=== PATIENT | male | born 1995 | race Caucasian/White ===

== ENCOUNTER 2019-01-31 07:49 | Day surgery (SDC) | payer OTHER ==
[~2019-01-31] VITALS: Ht 185.4 cm; Wt 77.6 kg
[2019-01-31] VITALS (16 sets, daily range): BP systolic 91–131; BP diastolic 42–91
[~2019-01-31 07:49] MED LIST: ALBU8.5H2 IH; CONCERTA PO; FLUT50DI2 INH; MNTL10T PO
--- OUTSIDE RECORDS SUMMARY | 2019-01-31 07:53 | XMS REPORT ---
Author Author KYE ROMAN Organization [facility] Address [address] [place] [address] Care Team Providers Care Pie Filling Mixer Name Role Phone KYE ROMAN Unavailable PROBLEMS Type Condition ICD9-CM Code [id number] Code Onset Dates Condition Status SNOMED Code Problem Attention deficit hyperactivity disorder (ADHD), predominantly inattentive type F90.0 Active 11498724 Problem Other general medical examination for administrative purposes V70.3 Active 30385434 ALLERGIES No Information ENCOUNTERS Encounter Location Date Diagnosis [place] [id number] [place] [address] Nov, Attention deficit hyperactivity disorder (ADHD), predominantly inattentive type F90.0 [facility] [id number] [place] [address] Oct, Attention deficit hyperactivity disorder (ADHD), predominantly inattentive type F90.0 [facility] [id number] [place] [address] Sep, Attention deficit hyperactivity disorder (ADHD), predominantly inattentive type F90.0 [facility] [id number] [place] [address] Aug, Attention deficit hyperactivity disorder (ADHD), predominantly inattentive type F90.0 [facility] [id number] [place] [address] Jul, Attention deficit hyperactivity disorder (ADHD), predominantly inattentive type F90.0 [facility] [id number] [place] [address] Jun, Attention deficit hyperactivity disorder (ADHD), predominantly inattentive type F90.0 [facility] [id number] [place] [address] May, Encounter for immunization Z23 [facility] [address], [place] [address] Jan, Dental examination Z01.20 [facility] [id number] [address] December, [facility] [id number] [address] December, Mood disorder F39 and Primary insomnia F51.01 [facility] [address], [place] [address] Jul, Routine general medical examination at health care facility Z00.00 [facility] [id number] [address] 14 Nov, 2014 [facility] [id number] [address] Nov, [facility] [id number], [place] [address] Apr, [facility] [address], [place] [address] Apr, [facility] [id number] [address] Nov, [facility] [address], [place] [address] Nov, [facility] [id number], [place] [address] Aug, [facility] [id number], [place] [address] Sep, [facility] [id number], [place] [address] Aug, [facility] [id number], [place] [address] Aug, [facility] [id number] [address] Jul, [facility] [id number], [place] [address] Jul, [facility] [id number], [place] [address] May, [facility] [id number], [place] [address] Jul, [facility] [id number], [place] [address] Jun, [facility] [id number] [place] [address] Jul, [facility] [id number], [place] [address] Jun, [facility] [id number], [place] [address] Mar, [facility] [id number] [address] Feb, IMMUNIZATIONS No Known Immunizations SOCIAL HISTORY Never Assessed REASON FOR VISIT Controlled Med Refill PLAN OF CARE VITAL SIGNS MEDICATIONS Medication Instructions Dosage Frequency Start Date End Date Duration Status Adderall 20 mg Orally Once a day 1 tablet in the morning 24h Nov, 28 days Active RESULTS No Results PROCEDURES No Known procedures INSTRUCTIONS MEDICATIONS ADMINISTERED No Known Medications MEDICAL (GENERAL) HISTORY Type Description Date Surgical History inguinal hernia repair
--- OUTSIDE RECORDS SUMMARY | 2019-01-31 07:53 | XMS REPORT ---
Author Author Migration, Doctor Organization [facility] Address Unknown Phone Unavailable Care Team Providers Care Learning Support Aide Name Role Phone Migration, Doctor Unavailable Unavailable PROBLEMS Type Condition ICD9-CM Code [id number] Code Onset Dates Condition Status SNOMED Code Problem Other general medical examination for administrative purposes V70.3 Active 22699922 Problem Attention deficit hyperactivity disorder (ADHD), predominantly inattentive type F90.0 Active 60832438 ALLERGIES No Information ENCOUNTERS Encounter Location Date Diagnosis [place] [id number] [place] [address] Nov, Attention deficit hyperactivity disorder (ADHD), predominantly inattentive type F90.0 [place] [id number] [place] [address] Oct, Attention deficit hyperactivity disorder (ADHD), predominantly inattentive type F90.0 [place] [id number] [place] [address] Sep, Attention deficit hyperactivity disorder (ADHD), predominantly inattentive type F90.0 [place] [id number] [place] [address] Aug, Attention deficit hyperactivity disorder (ADHD), predominantly inattentive type F90.0 [place] [id number] [place] [address] Jul, Attention deficit hyperactivity disorder (ADHD), predominantly inattentive type F90.0 [place] [id number] [place] [address] Jun, Attention deficit hyperactivity disorder (ADHD), predominantly inattentive type F90.0 [facility] [id number] [place] [address] May, Encounter for immunization Z23 [place] [id number] [address] Jan, Dental examination Z01.20 [facility] [address] [address] December, [facility] [address] [address] December, Mood disorder F39 and Primary insomnia F51.01 [facility] [address] [address] 02 Jul, 2015 [facility] Z[facility].00 [facility] [address] [address] 14 Nov, 2014 [facility] [id number] [address] Nov, [facility] [address] [address] 27 Apr, 2013 [facility] [address] [address] 06 Apr, 2013 [facility] [address] [address] Nov, [facility] [address] [address] Nov, [facility] [address] [address] Aug, [facility] [address] [address] Sep, [facility] [address] [address] Aug, [facility] [address] [address] Aug, [facility] [address] [address] Jul, [facility] [address] [address] Jul, [facility] [address] [address] May, [facility] [address] [address] Jul, [facility] [id number] [place] [address] Jun, [facility] [id number] [place] [address] Jul, [facility] [id number] [place] [address] Jun, [facility] [address] [address] Mar, [facility] [address] [address] Feb, IMMUNIZATIONS No Known Immunizations SOCIAL HISTORY Never Assessed REASON FOR VISIT [place] [place] PLAN OF CARE VITAL SIGNS MEDICATIONS Medication Instructions Dosage Frequency Start Date End Date Duration Status Concerta 27 mg 1 tablet by Oral route 1 time per dayin the morning, for ADHD Sep, Active RESULTS No Results PROCEDURES No Known procedures INSTRUCTIONS MEDICATIONS ADMINISTERED No Known Medications MEDICAL (GENERAL) HISTORY Type Description Date Surgical History inguinal hernia repair
--- OUTSIDE RECORDS SUMMARY | 2019-01-31 07:53 | XMS REPORT ---
Author Author Migration, Doctor Organization [facility] Address Unknown Phone Unavailable Care Team Providers Care Offal Worker Name Role Phone Migration, Doctor Unavailable Unavailable PROBLEMS Type Condition ICD9-CM Code [id number] Code Onset Dates Condition Status SNOMED Code Problem Other general medical examination for administrative purposes V70.3 Active 04049294 Problem Attention deficit hyperactivity disorder (ADHD), predominantly inattentive type F90.0 Active 74986409 ALLERGIES No Information ENCOUNTERS Encounter Location Date Diagnosis [place] [id number] [place] [address] Nov, Attention deficit hyperactivity disorder (ADHD), predominantly inattentive type F90.0 [place] [id number] [place] [address] Oct, Attention deficit hyperactivity disorder (ADHD), predominantly inattentive type F90.0 [place] [id number] [place] [address] Sep, Attention deficit hyperactivity disorder (ADHD), predominantly inattentive type F90.0 [place] [id number] [place] [address] Aug, Attention deficit hyperactivity disorder (ADHD), predominantly inattentive type F90.0 [place] [id number] [place] [address] Jul, Attention deficit hyperactivity disorder (ADHD), predominantly inattentive type F90.0 [place] [id number] [place] [address] Jun, Attention deficit hyperactivity disorder (ADHD), predominantly inattentive type F90.0 [facility] [id number] [place] [address] May, Encounter for immunization Z23 [place] [id number] [address] Jan, Dental examination Z01.20 [facility] [address] [address] December, [facility] [address] [address] December, Mood disorder F39 and Primary insomnia F51.01 [facility] [address] [address] 02 Jul, 2015 Routine general medical examination at [facility] facility Z00.00 [facility] [address] [address] [address], [address] [facility] [id number] [address] Nov, [facility] [address] [address] [address], [address] [facility] [address] [address] 06 Apr, 2013 [facility] [address] [address] Nov, [facility] [address] [address] Nov, [facility] [address] [address] Aug, [facility] [address] [address] Sep, [facility] [address] [address] Aug, [facility] [address] [address] Aug, [facility] [address] [address] Jul, [facility] [address] [address] Jul, [facility] [address] [address] May, [facility] [address] [address] Jul, [facility] [id number] [place] [address] Jun, [facility] [id number] [place] [address] Jul, [facility] [id number] [place] [address] Jun, [facility] [address] [address] Mar, [facility] [address] [address] Feb, IMMUNIZATIONS No Known Immunizations SOCIAL HISTORY Never Assessed REASON FOR VISIT EMR-[facility] [place] PLAN OF CARE VITAL SIGNS MEDICATIONS Unknown Medications RESULTS No Results PROCEDURES No Known procedures INSTRUCTIONS MEDICATIONS ADMINISTERED No Known Medications MEDICAL (GENERAL) HISTORY Type Description Date Surgical History inguinal hernia repair
--- OUTSIDE RECORDS SUMMARY | 2019-01-31 07:53 | XMS REPORT ---
Author Author Migration, Doctor Organization [facility] Address Unknown Phone Unavailable Care Team Providers Care Behavioral Health Assistant Name Role Phone Migration, Doctor Unavailable Unavailable PROBLEMS Type Condition ICD9-CM Code ZCS85-MI Code Onset Dates Condition Status SNOMED Code Problem Other general medical examination for administrative purposes V70.3 Active 46563421 Problem Attention deficit hyperactivity disorder (ADHD), predominantly inattentive type F90.0 Active 96449453 ALLERGIES No Information ENCOUNTERS Encounter Location Date Diagnosis [place] [id number] [place] [address] Nov, Attention deficit hyperactivity disorder (ADHD), predominantly inattentive type F90.0 [place] [id number] [place] [address] Oct, Attention deficit hyperactivity disorder (ADHD), predominantly inattentive type F90.0 [place] [id number] [place] [address] Sep, Attention deficit hyperactivity disorder (ADHD), predominantly inattentive type F90.0 [place] [id number] [place] [address] Aug, Attention deficit hyperactivity disorder (ADHD), predominantly inattentive type F90.0 [place] [id number] [place] [address] Jul, Attention deficit hyperactivity disorder (ADHD), predominantly inattentive type F90.0 [place] [id number] [place] [address] Jun, Attention deficit hyperactivity disorder (ADHD), predominantly inattentive type F90.0 [facility] [id number] [place] [address] May, Encounter for immunization Z23 [place] [id number], [place] [address] Jan, Dental examination Z01.20 [facility] [address], [place] [address] December, [facility] [address], [place] [address] December, Mood disorder F39 and Primary insomnia F51.01 [facility] [address], [place] [address] 02 Jul, 2015 Routine general medical examination at [facility] facility Z00.00 [facility] [address], [place] [address] 14 Nov, 2014 [facility] [id number], [place] [address] Nov, [facility] [address], [place] [address] 27 Apr, 2013 [facility] [address], [place] [address] 06 Apr, 2013 [facility] [address], [place] [address] Nov, [facility] [address], [place] [address] Nov, [facility] [address], [place] [address] Aug, [facility] [address], [place] [address] Sep, [facility] [address], [place] [address] Aug, [facility] [address], [place] [address] Aug, [facility] [address], [place] [address] Jul, [facility] [address], [place] [address] Jul, [facility] [address], [place] [address] May, [facility] [address], [place] [address] Jul, [facility] [id number] [place] [address] Jun, [facility] [id number] [place] [address] Jul, [facility] [address] [place] [address] Jun, [facility] [address], [place] [address] Mar, [facility] [address], [place] [address] Feb, IMMUNIZATIONS No Known Immunizations SOCIAL HISTORY Never Assessed REASON FOR VISIT [place] [place]AN OF CARE VITAL SIGNS MEDICATIONS Unknown Medications RESULTS No Results PROCEDURES No Known procedures INSTRUCTIONS MEDICATIONS ADMINISTERED No Known Medications MEDICAL (GENERAL) HISTORY Type Description Date Surgical History inguinal hernia repair
--- OUTSIDE RECORDS SUMMARY | 2019-01-31 07:53 | XMS REPORT ---
Author Author Migration, Doctor Organization [facility] Address Unknown Phone Unavailable Care Team Providers Care Java [id number] Technical Lead Name Role Phone Migration, Doctor Unavailable Unavailable PROBLEMS Type Condition ICD9-CM Code HIX03-CE Code Onset Dates Condition Status SNOMED Code Problem Other general medical examination for administrative purposes V70.3 Active 55028723 Problem Attention deficit hyperactivity disorder (ADHD), predominantly inattentive type F90.0 Active 51269135 ALLERGIES No Information ENCOUNTERS Encounter Location Date Diagnosis [place] [id number] [place] [address] Nov, Attention deficit hyperactivity disorder (ADHD), predominantly inattentive type F90.0 [place] [id number] [place] [address] Oct, Attention deficit hyperactivity disorder (ADHD), predominantly inattentive type F90.0 [place] [id number] [place] [address] Sep, Attention deficit hyperactivity disorder (ADHD), predominantly inattentive type F90.0 [place] [id number] [place] [address] Aug, Attention deficit hyperactivity disorder (ADHD), predominantly inattentive type F90.0 [place] [id number] [place] [address] Jul, Attention deficit hyperactivity disorder (ADHD), predominantly inattentive type F90.0 [place] [id number] [place] [address] Jun, Attention deficit hyperactivity disorder (ADHD), predominantly inattentive type F90.0 [facility] [id number] [place] [address] May, Encounter for immunization Z23 [place] [id number], [place] [address] Jan, Dental examination Z01.20 [facility] [address], [place] [address] December, [facility] [address], [place] [address] December, Mood disorder F39 and Primary insomnia F51.01 [facility] [address], [place] [address] 02 Jul, 2015 Routine general medical examination at [facility] facility Z00.00 [facility] [address], [place] [address] 14 Nov, 2014 [facility] [address], [place] [address] Nov, [facility] [address], [place] [address] 27 Apr, 2013 [facility] [address], [place] [address] 06 Apr, 2013 [facility] [address], [place] [address] Nov, [facility] [address], [place] [address] Nov, [facility] [address], [place] [address] Aug, [facility] [address], [place] [address] Sep, [facility] [address], [place] [address] Aug, [facility] [address], [place] [address] Aug, [facility] [address], [place] [address] Jul, [facility] [address], [place] [address] Jul, [facility] [address], [place] [address] May, [facility] [address], [place] [address] Jul, [facility] [id number] [place] [address] Jun, [facility] [id number] [place] [address] Jul, [facility] [address] [place] [address] Jun, [facility] [address], [place] [address] Mar, [facility] [address], [place] [address] Feb, IMMUNIZATIONS No Known Immunizations SOCIAL HISTORY Never Assessed REASON FOR VISIT EMR-[facility] [place] PLAN OF CARE VITAL SIGNS MEDICATIONS Unknown Medications RESULTS No Results PROCEDURES No Known procedures INSTRUCTIONS MEDICATIONS ADMINISTERED No Known Medications MEDICAL (GENERAL) HISTORY Type Description Date Surgical History inguinal hernia repair
--- OUTSIDE RECORDS SUMMARY | 2019-01-31 07:53 | XMS REPORT ---
Author Author Migration, Doctor Organization [facility] Address Unknown Phone Unavailable Care Team Providers Care Beader Tender Name Role Phone Migration, Doctor Unavailable Unavailable PROBLEMS Type Condition ICD9-CM Code [id number] Code Onset Dates Condition Status SNOMED Code Problem Other general medical examination for administrative purposes V70.3 Active 28178271 Problem Attention deficit hyperactivity disorder (ADHD), predominantly inattentive type F90.0 Active 75616830 ALLERGIES No Information ENCOUNTERS Encounter Location Date Diagnosis [place] [id number] [place] [address] Nov, Attention deficit hyperactivity disorder (ADHD), predominantly inattentive type F90.0 [place] [id number] [place] [address] Oct, Attention deficit hyperactivity disorder (ADHD), predominantly inattentive type F90.0 [place] [id number] [place] [address] Sep, Attention deficit hyperactivity disorder (ADHD), predominantly inattentive type F90.0 [place] [id number] [place] [address] Aug, Attention deficit hyperactivity disorder (ADHD), predominantly inattentive type F90.0 [place] [id number] [place] [address] Jul, Attention deficit hyperactivity disorder (ADHD), predominantly inattentive type F90.0 [place] [id number] [place] [address] Jun, Attention deficit hyperactivity disorder (ADHD), predominantly inattentive type F90.0 [facility] [id number] [place] [address] May, Encounter for immunization Z23 [place] [id number] [address] Jan, Dental examination Z01.20 [facility] [id number] [address] December, [facility] [id number] [address] December, Mood disorder F39 and Primary insomnia F51.01 [facility] [id number] [address] 02 Jul, 2015 Routine general medical examination at [facility] Z00.00 [facility] [id number] [address] 14 Nov, 2014 [facility] [id number] [address] Nov, [facility] [id number] [address] 27 Apr, 2013 [facility] [id number] [address] 06 Apr, 2013 [facility] [id number] [address] Nov, [facility] [id number] [address] Nov, [facility] [id number] [address] Aug, [facility] [id number] [address] Sep, [facility] [id number] [address] Aug, [facility] [id number] [address] Aug, [facility] [id number] [address] Jul, [facility] [id number] [address] Jul, [facility] [id number] [address] May, [facility] [id number] [address] Jul, [facility] [id number] [place] [address] Jun, [facility] [id number] [place] [address] Jul, [facility] [id number] [place] [address] Jun, [facility] [id number] [address] Mar, [facility] [id number] [address] Feb, IMMUNIZATIONS No Known Immunizations SOCIAL HISTORY Never Assessed REASON FOR VISIT E[place] [place]AN OF CARE VITAL SIGNS MEDICATIONS Unknown Medications RESULTS No Results PROCEDURES No Known procedures INSTRUCTIONS MEDICATIONS ADMINISTERED No Known Medications MEDICAL (GENERAL) HISTORY Type Description Date Surgical History inguinal hernia repair
--- OUTSIDE RECORDS SUMMARY | 2019-01-31 07:54 | XMS REPORT | Continuity of Care Document ---
Author Organization Unknown Address Unknown Allergies There is no data. Medications There is no data. Problems Date Dx Coded Attending Type Code Diagnosis Diagnosed By 03/16/2008 AKRMA UMANA APRN 314.01 ATTENTION-DEFICIT HYPERACTIVITY DISORDER 03/16/2008 ENEDINA MIRANDA DO 314.01 ATTENTION-DEFICIT HYPERACTIVITY DISORDER 04/28/2008 KARMA UMANA APRN V58.69 MEDICATION HIGH RISK 04/28/2008 ENEDINA MIRANDA DO V58.69 MEDICATION HIGH RISK 03/08/2010 KARMA UMANA APRN V06.5 DT, TETANUS-DIPHTHERIA [Td] ,TDAP 03/08/2010 ENEDINA MIRANDA DO V06.5 DT, TETANUS-DIPHTHERIA [Td] ,TDAP 03/06/2011 DONG RASCON KARMA JAMIN 303.00 ACUTE ALCOHOLIC INTOXICATION IN ALCOHOLISM UNSPECIFIED DRINKING BEHAVIOR 03/06/2011 ENEDINA MIRANDA DO 303.00 ACUTE ALCOHOLIC INTOXICATION IN ALCOHOLISM UNSPECIFIED DRINKING BEHAVIOR 07/20/2011 KARMA UMANA APRN V04.81 FLU DX (P-FREE AGE 3 AND ABOVE) 07/20/2011 ENEDINA MIRANDA DO V04.81 FLU DX (P-FREE AGE 3 AND ABOVE) 05/02/2013 ENEDINA MIRANDA DO V70.3 OTHER GENERAL MEDICAL EXAMINATION FOR ADMINISTRATIVE PURPOSES Procedures There is no data. Results There is no data. Encounters ACCT No. Visit Date/Time Discharge Status Pt. Type Provider Facility Loc./Unit Complaint [id number] 05/02/2013 08:51:00 05/02/2013 23:59:59 [facility] Outpatient ENEDINA MIRANDA DO [id number] 09/05/2011 10:35:00 09/05/2011 23:59:59 [facility] Outpatient KARMA UMANA APRN [id number] 08/20/2012 20:32:56 [facility] [id number] 07/02/2017 08:00:00 07/02/2017 23:59:59 [facility]
--- OUTSIDE RECORDS SUMMARY | 2019-01-31 07:54 | XMS REPORT ---
Author Author KYE ROMAN Organization [facility] [place] Address [address] [place] [address] Care Team Providers Care Racking Machine Operator Name Role Phone KYE ROMAN Unavailable PROBLEMS Type Condition ICD9-CM Code [id number] Code Onset Dates Condition Status SNOMED Code Problem Attention deficit hyperactivity disorder (ADHD), predominantly inattentive type F90.0 Active 70395986 Problem Other general medical examination for administrative purposes V70.3 Active 30782286 ALLERGIES No Information ENCOUNTERS Encounter Location Date Diagnosis [place] [id number] [place] [address] Nov, Attention deficit hyperactivity disorder (ADHD), predominantly inattentive type F90.0 [facility] [place] [id number] [place] [address] Oct, Attention deficit hyperactivity disorder (ADHD), predominantly inattentive type F90.0 [facility] [place] [id number] [place] [address] Sep, Attention deficit hyperactivity disorder (ADHD), predominantly inattentive type F90.0 [facility] [place] [id number] [place] [address] Aug, Attention deficit hyperactivity disorder (ADHD), predominantly inattentive type F90.0 [facility] [place] [id number] [place] [address] Jul, Attention deficit hyperactivity disorder (ADHD), predominantly inattentive type F90.0 [facility] [place] [id number] [place] [address] Jun, Attention deficit hyperactivity disorder (ADHD), predominantly inattentive type F90.0 [facility] [place] [id number] [place] [address] May, Encounter for immunization Z23 [facility] [place] [address] [address] Jan, Dental examination Z01.20 [facility] [place] [id number] [address] December, [facility] [place] [id number] [address] December, Mood disorder F39 and Primary insomnia F51.01 [facility] [place] [address] [address] Jul, Routine general medical examination at health care facility Z00.00 [facility] [place] [id number] [address] 14 Nov, 2014 [facility] [place] [id number] [address] Nov, [facility] [place] [id number] [address] Apr, [facility] [place] [id number] [address] Apr, [facility] [place] [id number] [address] Nov, [facility] [place] [id number] [address] Nov, [facility] [place] [id number] [address] Aug, [facility] [place] [id number] [address] Sep, [facility] [place] [id number] [address] Aug, [facility] [place] [id number] [address] Aug, [facility] [place] [id number] [address] Jul, [facility] [place] [id number] [address] Jul, [facility] [place] [id number] [address] May, [facility] [place] [id number] [address] Jul, [facility] [place] [id number] [address] Jun, [facility] [place] [id number] [place] [address] Jul, [facility] [place] [id number] [address] Jun, [facility] [place] [id number] [address] Mar, [facility] [place] [id number] [address] Feb, IMMUNIZATIONS No Known Immunizations SOCIAL HISTORY Never Assessed REASON FOR VISIT Controlled Med Refill PLAN OF CARE VITAL SIGNS MEDICATIONS Medication Instructions Dosage Frequency Start Date End Date Duration Status Adderall 20 mg Orally Once a day 1 tablet in the morning 24h Aug, 28 days Active RESULTS No Results PROCEDURES No Known procedures INSTRUCTIONS MEDICATIONS ADMINISTERED No Known Medications MEDICAL (GENERAL) HISTORY Type Description Date Surgical History inguinal hernia repair
--- OUTSIDE RECORDS SUMMARY | 2019-01-31 07:54 | XMS REPORT ---
Author Author ENEDINA MIRANDA [facility] Address [address] [place] [address] Care Team Providers Care Auto Body Estimator Name Role Phone ENEDINA MIRANDA Unavailable PROBLEMS Type Condition ICD9-CM Code NDL28-VI Code Onset Dates Condition Status SNOMED Code Problem Attention deficit hyperactivity disorder (ADHD), predominantly inattentive type F90.0 Active 91618741 Problem Other general medical examination for administrative purposes V70.3 Active 13781545 ALLERGIES No Information ENCOUNTERS Encounter Location Date Diagnosis [place] [id number] [place] [address] Nov, Attention deficit hyperactivity disorder (ADHD), predominantly inattentive type F90.0 [facility] [id number] [place] [address] Oct, Attention deficit hyperactivity disorder (ADHD), predominantly inattentive type F90.0 [facility] [id number] [place] [address] Sep, Attention deficit hyperactivity disorder (ADHD), predominantly inattentive type F90.0 [facility] [id number] [place] [address] Aug, Attention deficit hyperactivity disorder (ADHD), predominantly inattentive type F90.0 [facility] [id number] [place] [address] Jul, Attention deficit hyperactivity disorder (ADHD), predominantly inattentive type F90.0 [facility] [id number] [place] [address] Jun, Attention deficit hyperactivity disorder (ADHD), predominantly inattentive type F90.0 [facility] [id number] [place] [address] May, Encounter for immunization Z23 [facility] [address], [place] [address] Jan, Dental examination Z01.20 [facility] [id number], [place] [address] December, [facility] [id number] [place] [address] December, Mood disorder F39 and Primary insomnia F51.01 [facility] [id number], [place] [address] Jul, Routine general medical examination at health care facility Z00.00 [facility] [id number] [place] [address] 14 Nov, 2014 [facility] [id number] [place] [address] Nov, [facility] [id number] [address] Apr, [facility] [id number], [place] [address] Apr, [facility] [id number], [place] [address] Nov, [facility] [id number], [place] [address] Nov, [facility] [id number], [place] [address] Aug, [facility] [id number], [place] [address] Sep, [facility] [id number], [place] [address] Aug, [facility] [id number], [place] [address] Aug, [facility] [id number], [place] [address] 15 Jul, 2011 [facility] [id number], [place] [address] Jul, [facility] [id number], [place] [address] May, [facility] [id number], [place] [address] Jul, [facility] [id number], [place] [address] Jun, [facility] [id number] [place] [address] Jul, [facility] [id number], [place] [address] Jun, [facility] [id number], [place] [address] Mar, [facility] [id number], [place] [address] Feb, IMMUNIZATIONS Vaccine Route Administration Date Status FLUARIX QUAD (3 AND UP) 2016 IM Intramuscular May 07, 2017 Administered SOCIAL HISTORY Never Assessed REASON FOR VISIT flu shot [facility] PLAN OF CARE VITAL SIGNS MEDICATIONS Unknown Medications RESULTS No Results PROCEDURES Procedure Date Ordered Result Body Site FLUARIX QUAD (3 & UP)-GSK-2015 May 07, 2017 SINGLE IMMUNIZATION ADMIN May 07, 2017 INSTRUCTIONS MEDICATIONS ADMINISTERED No Known Medications MEDICAL (GENERAL) HISTORY Type Description Date Surgical History inguinal hernia repair
--- OUTSIDE RECORDS SUMMARY | 2019-01-31 07:54 | XMS REPORT ---
Author Author KYE ROMAN Organization [employer] Address Unknown Phone Unavailable Care Team Providers Care Pharmacy Helper Name Role Phone KYE ROAMN CP Unavailable Allergies, Adverse Reactions, Alerts Substance Reaction Event Type N.K.D.A. Info Not Available Non Drug Allergy Problems Problem Type Condition Code Onset Dates Condition Status Assessment Routine general medical examination at health care facility Z00.00 Active Problem Other general medical examination for administrative purposes V70.3 Active Medications No Known Medications Procedures Procedure Coding System Code Date Office Visit, New Pt., Level 3 CPT-4 17928 Jul 07, 2015 Vital Signs Date/Time: Jul 07, 2015 Temperature 97.6 F Weight 175.3 lbs Height 72 in BMI 23.77 Index Blood Pressure Diastolic 78 mmHg Blood Pressure Systolic 130 mmHg Cardiac Monitoring Heart Rate 60 bpm Results No Known Results Summary Purpose [employer] Submission
--- OUTSIDE RECORDS SUMMARY | 2019-01-31 07:54 | XMS REPORT ---
Author Author KYE ROMAN Organization [facility] Address [address] [place] [address] Care Team Providers Care Journeyman Millwright Name Role Phone KYE ROMAN Unavailable PROBLEMS Type Condition ICD9-CM Code ZMB51-MM Code Onset Dates Condition Status SNOMED Code Problem Attention deficit hyperactivity disorder (ADHD), predominantly inattentive type F90.0 Active 11747380 Problem Other general medical examination for administrative purposes V70.3 Active 18532184 ALLERGIES No Information ENCOUNTERS Encounter Location Date Diagnosis [address] [id number] [place] [address] Nov, Attention deficit hyperactivity disorder (ADHD), predominantly inattentive type F90.0 [facility] [id number] [place] [address] Oct, Attention deficit hyperactivity disorder (ADHD), predominantly inattentive type F90.0 [facility] [id number] [place] [address] Sep, Attention deficit hyperactivity disorder (ADHD), predominantly inattentive type F90.0 [facility] [id number] [place] [address] Aug, Attention deficit hyperactivity disorder (ADHD), predominantly inattentive type F90.0 [facility] [address] [place] [address] Jul, Attention deficit hyperactivity disorder (ADHD), predominantly inattentive type F90.0 [facility] [address] [place] [address] Jun, Attention deficit hyperactivity disorder (ADHD), predominantly inattentive type F90.0 [facility] [address] [place] [address] May, Encounter for immunization Z23 [facility] [address], [place] [address] Jan, Dental examination Z01.20 [facility] [address], [place] [address] December, [facility] [id number], [place] [address] December, Mood disorder F39 and Primary insomnia F51.01 [facility] [address], [place] [address] Jul, Routine general medical examination at health care facility Z00.00 [facility] [id number], [place] [address] 14 Nov, 2014 [facility] [id number], [place] [address] Nov, [facility] [id number], [place] [address] Apr, [facility] [id number], [place] [address] Apr, [facility] [id number], [place] [address] Nov, [facility] [id number], [place] [address] Nov, [facility] [id number], [place] [address] Aug, [facility] [id number], [place] [address] Sep, [facility] [id number], [place] [address] Aug, [facility] [id number], [place] [address] Aug, [facility] [id number], [place] [address] Jul, [facility] [id number], [place] [address] Jul, [facility] [id number], [place] [address] May, [facility] [id number], [place] [address] Jul, [facility] [id number], [place] [address] Jun, [facility] [address] [place] [address] Jul, [facility] [id number], [place] [address] Jun, [facility] [id number], [place] [address] Mar, [facility] [id number], [place] [address] Feb, IMMUNIZATIONS No Known Immunizations SOCIAL HISTORY Never Assessed REASON FOR VISIT Controlled Med Refill PLAN OF CARE VITAL SIGNS MEDICATIONS Medication Instructions Dosage Frequency Start Date End Date Duration Status Adderall 20 mg Orally Once a day 1 tablet in the morning 24h Oct, 28 days Active RESULTS No Results PROCEDURES No Known procedures INSTRUCTIONS MEDICATIONS ADMINISTERED No Known Medications MEDICAL (GENERAL) HISTORY Type Description Date Surgical History inguinal hernia repair
--- OUTSIDE RECORDS SUMMARY | 2019-01-31 07:54 | XMS REPORT ---
Author Author KYE ROMAN Organization [facility] [place] Address [address] [place] [address] Care Team Providers Care Senior Quantity Surveyor Name Role Phone KYE ROMAN Unavailable PROBLEMS Type Condition ICD9-CM Code ZMF94-LE Code Onset Dates Condition Status SNOMED Code Problem Attention deficit hyperactivity disorder (ADHD), predominantly inattentive type F90.0 Active 41850665 Problem Other general medical examination for administrative purposes V70.3 Active 54862034 ALLERGIES No Known Allergies ENCOUNTERS Encounter Location Date Diagnosis [place] [id number] [place] [address] Nov, Attention deficit hyperactivity disorder (ADHD), predominantly inattentive type F90.0 [facility] [place] [id number] [place] [address] Oct, Attention deficit hyperactivity disorder (ADHD), predominantly inattentive type F90.0 [facility] [place] [id number] [place] [address] Sep, Attention deficit hyperactivity disorder (ADHD), predominantly inattentive type F90.0 [facility] [place] [id number] [place] [address] Aug, Attention deficit hyperactivity disorder (ADHD), predominantly inattentive type F90.0 [facility] [place] [id number] [place] [address] Jul, Attention deficit hyperactivity disorder (ADHD), predominantly inattentive type F90.0 [facility] [place] [id number] [place] [address] Jun, Attention deficit hyperactivity disorder (ADHD), predominantly inattentive type F90.0 [facility] [place] [id number] [place] [address] May, Encounter for immunization Z23 [facility] [place] [address], [place] [address] Jan, Dental examination Z01.20 [facility] [place] [id number] [place] [address] December, [facility] [place] [id number] [place] [address] December, Mood disorder F39 and Primary insomnia F51.01 [facility] [place] [address], [place] [address] Jul, Routine general medical examination at health care facility Z00.00 [facility] [place] [id number] [place] [address] 14 Nov, 2014 [facility] [place] [address], [place] [address] Nov, [facility] [place] [address], [place] [address] Apr, [facility] [place] [address], [place] [address] Apr, [facility] [place] [address], [place] [address] Nov, [facility] [place] [address], [place] [address] Nov, [facility] [place] [address], [place] [address] Aug, [facility] [place] [address], [place] [address] Sep, [facility] [place] [address] [place] [address] Aug, [facility] [place] [address], [place] [address] Aug, [facility] [place] [id number] [place] [address] 15 Jul, 2011 [facility] [place] [id number] [place] [address] Jul, [facility] [place] [address], [place] [address] May, [facility] [place] [address], [place] [address] Jul, [facility] [place] [address], [place] [address] Jun, [facility] [place] [id number] [place] [address] Jul, [facility] [place] [id number], [place] [address] Jun, [facility] [place] [address], [place] [address] Mar, [facility] [place] [id number], [place] [address] Feb, IMMUNIZATIONS No Known Immunizations SOCIAL HISTORY Never Assessed REASON FOR VISIT difficulty sleeping- works 2-10 shift so he has trouble winding down and going t o sleep- Eugene Otero RN PLAN OF CARE VITAL SIGNS Height 72 in 2017-07-02 Weight 170 lbs 2017-07-02 Temperature 98.3 degrees Fahrenheit 2017-07-02 Heart Rate 82 bpm 2017-07-02 Respiratory Rate 16 2017-07-02 BMI 23.05 kg/m2 2017-07-02 Blood pressure systolic 120 mmHg 2017-07-02 Blood pressure diastolic 70 mmHg 2017-07-02 MEDICATIONS Medication Instructions Dosage Frequency Start Date End Date Duration Status Fluoxetine HCl 20 mg Orally Once a day 1 capsule in the morning 24h December, 30 day(s) Active Adderall 20 mg Orally Once a day 1 tablet in the morning 24h Jun, Active Ativan 1 MG Orally Once a day 1 tablet at bedtime as needed 24h December, Not-Taking RESULTS No Results PROCEDURES No Known procedures INSTRUCTIONS MEDICATIONS ADMINISTERED No Known Medications MEDICAL (GENERAL) HISTORY Type Description Date Surgical History inguinal hernia repair
--- OUTSIDE RECORDS SUMMARY | 2019-01-31 07:54 | XMS REPORT ---
Author Author KYE ROMAN Organization [facility] Address [address] [place] [address] Care Team Providers Care Lab Clerk Name Role Phone KYE ROMAN Unavailable PROBLEMS Type Condition ICD9-CM Code HSU34-WK Code Onset Dates Condition Status SNOMED Code Problem Attention deficit hyperactivity disorder (ADHD), predominantly inattentive type F90.0 Active 57930854 Problem Other general medical examination for administrative purposes V70.3 Active 32750245 ALLERGIES No Information ENCOUNTERS Encounter Location Date Diagnosis [place] [id number] [place] [address] Nov, Attention deficit hyperactivity disorder (ADHD), predominantly inattentive type F90.0 [facility] [id number] [place] [address] Oct, Attention deficit hyperactivity disorder (ADHD), predominantly inattentive type F90.0 [facility] [id number] [place] [address] Sep, Attention deficit hyperactivity disorder (ADHD), predominantly inattentive type F90.0 [facility] [id number] [place] [address] Aug, Attention deficit hyperactivity disorder (ADHD), predominantly inattentive type F90.0 [facility] [id number] [place] [address] Jul, Attention deficit hyperactivity disorder (ADHD), predominantly inattentive type F90.0 [facility] [id number] [place] [address] Jun, Attention deficit hyperactivity disorder (ADHD), predominantly inattentive type F90.0 [facility] [id number] [place] [address] May, Encounter for immunization Z23 [facility] [address], [place] [address] Jan, Dental examination Z01.20 [facility] [id number] [place] [address] December, [facility] [id number] [place] [address] December, Mood disorder F39 and Primary insomnia F51.01 [facility] [address], [place] [address] Jul, Routine general medical examination at health care facility Z00.00 [facility] [id number] [address] 14 Nov, 2014 [facility] [id number] [place] [address] Nov, [facility] [address], [place] [address] Apr, [facility] [address], [place] [address] Apr, [facility] [id number] [place] [address] Nov, [facility] [address], [place] [address] Nov, [facility] [address], [place] [address] Aug, [facility] [address], [place] [address] Sep, [facility] [address], [place] [address] Aug, [facility] [address], [place] [address] Aug, [facility] [id number] [place] [address] Jul, [facility] [address], [place] [address] Jul, [facility] [address], [place] [address] May, [facility] [address], [place] [address] Jul, [facility] [address], [place] [address] Jun, [facility] [address] [place] [address] Jul, [facility] [address], [place] [address] Jun, [facility] [address], [place] [address] Mar, [facility] [id number], [place] [address] Feb, IMMUNIZATIONS No Known Immunizations SOCIAL HISTORY Never Assessed REASON FOR VISIT Controlled Med Refill 07/30/17 PLAN OF CARE VITAL SIGNS MEDICATIONS Medication Instructions Dosage Frequency Start Date End Date Duration Status Adderall 20 mg Orally Once a day 1 tablet in the morning 24h Jul, 28 days Active RESULTS No Results PROCEDURES No Known procedures INSTRUCTIONS MEDICATIONS ADMINISTERED No Known Medications MEDICAL (GENERAL) HISTORY Type Description Date Surgical History inguinal hernia repair
[2019-01-31] MEDS ORDERED: fentaNYL INJECTION 100 MCG/2 ML AMP IVP STA (08:10)
[2019-01-31] MEDS ORDERED: NS IV 1000 ML 1,000 ML IV STA (08:20)
--- NOTE | 2019-01-31 08:20 | ED GU-Male ---
General Chief Complaint: Male Reproductive Stated Complaint: TESTICULAR PAIN Nursing Triage Note: PT PRESENTS TO THE ED VIA AMBULATORY TO RM 7 WITH COMPLAINTS OF TESTICULAR PAIN. PT STATES IT IS A SHARP, STABBING PAIN AND RATES IT 05/15. Source: patient Exam Limitations: no limitations History of Present Illness Date Seen by Provider: Jan 31, 2019 Time Seen by Provider: 08:05 Initial Comments Here with report of left testicular pain that started at about 4 AM. Reports that it is quite tender. Only comfortable when squatting down. He states that he has intermittent occasional pain that is short lasting and usually if he just pulls on the area briefly it will go away. Today he has had persistent pain and is not stopping. Does have history of right hernia repair. Denies dysuria, discharge or blood in his urine. Did vomit this morning with the pain and does have chills. Denies using condoms. Reports normal bowel movements. Timing/Duration: this morning Severity/Quality: severe, aching Location: scrotal Radiation: groin, scrotal Activities at Onset: none Prior Genitourinary Problems: none Sexual [place] History: less than 2 months ago Associated Symptoms: No abdominal pain, No dysuria, No lower back pain; nausea/vomiting; No urinary frequency Allergies and Home Medications Allergies Coded Allergies: No Known Drug Allergies (Unverified , 06/13/10) Home Medications Albuterol 8.5 Gm Hfa.aer.ad, 8.5 GM IH Q4H, (Reported) 2 PUFFS Montelukast Sodium 10 Mg Tablet, 1 TAB PO PRN, (Reported) take for seasonal asthma daily PRN. Patient Home Medication List Home Medication List Reviewed: Yes Review of Systems Review of Systems Constitutional: see HPI, chills; No fever EENTM: no symptoms reported Respiratory: no symptoms reported Cardiovascular: no symptoms reported Gastrointestinal: nausea, vomiting Genitourinary: see HPI; denies flank pain, denies hematuria; pain Musculoskeletal: no symptoms reported All Other Systemes Reviewed Negative Unless Noted: Yes Past Tskkvqv-Zqgept-Bemxav Hx Past Med/Social Hx: Reviewed Nursing Past Med/Soc Hx Patient Social History Alcohol Use: Occasionally Uses Recreational Drug Use: Yes (chewing tobacco) Smoking Status: Never a Smoker Recent Foreign Travel: No Contact w/Someone Who Travel: No Recent Infectious Disease Expo: No Recent Hopitalizations: No Past Medical History Surgeries: Yes (inguinal hernia repair) Respiratory: Yes Cardiac: No Neurological: No Reproductive Disorders: No Gastrointestinal: No Musculoskeletal: No Endocrine: No Psychosocial: No Blood Disorders: No Family Medical History Reviewed Nursing Family Hx No Pertinent Family Hx Physical Exam Vital Signs Vital Signs - First Documented 01/31/19 07:56 Temp 98.5 Pulse 50 Resp 18 B/P (MAP) 133/88 (103) Pulse Ox 100 O2 Delivery Room Air Capillary Refill : Less Than 3 Seconds Height, Weight, BMI Height: 6'1.00" Weight: 180lbs. 1.6oz. 81.986222wy; BMI Method:Stated General Appearance: WD/WN, no apparent distress HEENT: PERRL/EOMI, pharynx normal Neck: full range of motion, supple Cardiovascular: regular rate, rhythm, no murmur Respiratory: lungs clear, normal breath sounds Gastrointestinal: non tender, soft Male: testicular tenderness, other (high riding and horizontal oriented left testicle. No cremasteric reflex on left) Back: normal inspection, no CVA tenderness, no vertebral tenderness Neurologic/Psychiatric: alert, oriented x 3 Skin: normal color, warm/dry Progress/Results/Core Measures Suspected Sepsis Recent Fever Within 48 Hours: No Infection Criteria Present: None New/Unexplained Altered Menta: No Sepsis Screen: No Definite Risk SIRS Temperature:98.5 Pulse: 50 Respiratory Rate: 18 Laboratory Tests 01/31/19 08:20: White Blood Count 7.4 Blood Pressure 133 /88 Mean: 103 Laboratory Tests 01/31/19 08:20: Creatinine 1.17, Platelet Count 216, Total Bilirubin 0.3 Results/Orders Lab Results Laboratory Tests Test 01/31/19 08:20 Range/Units White Blood Count 7.4 4.3-11.0 10^3/uL Red Blood Count 5.34 4.35-5.85 10^6/uL Hemoglobin 16.6 13.3-17.7 G/DL Hematocrit 47 40-54 % Mean Corpuscular Volume 87 80-99 FL Mean Corpuscular Hemoglobin 31 25-34 PG Mean Corpuscular Hemoglobin Concent 36 32-36 G/DL Red Cell Distribution Width 11.6 10.0-14.5 % Platelet Count 216 130-400 10^3/uL Mean Platelet Volume 10.1 7.4-10.4 FL Neutrophils (%) (Auto) 79 H 42-75 % Lymphocytes (%) (Auto) 13 12-44 % Monocytes (%) (Auto) 8 0-12 % Eosinophils (%) (Auto) 0 0-10 % Basophils (%) (Auto) 0 0-10 % Neutrophils # (Auto) 5.8 1.8-7.8 X 10^3 Lymphocytes # (Auto) 0.9 L 1.0-4.0 X 10^3 Monocytes # (Auto) 0.6 0.0-1.0 X 10^3 Eosinophils # (Auto) 0.0 0.0-0.3 10^3/uL Basophils # (Auto) 0.0 0.0-0.1 10^3/uL Sodium Level 139 135-145 MMOL/L Potassium Level 4.5 3.6-5.0 MMOL/L Chloride Level 103 98-107 MMOL/L Carbon Dioxide Level 26 21-32 MMOL/L Anion Gap 10 5-14 MMOL/L Blood Urea Nitrogen 16 7-18 MG/DL Creatinine 1.17 0.60-1.30 MG/DL Estimat Glomerular Filtration Rate > 60 BUN/Creatinine Ratio 14 Glucose Level 105 70-105 MG/DL Calcium Level 9.6 8.5-10.1 MG/DL Corrected Calcium 8.5-10.1 MG/DL Total Bilirubin 0.3 0.1-1.0 MG/DL Aspartate Amino Transf (AST/SGOT) 18 5-34 U/L Alanine Aminotransferase (ALT/SGPT) 16 0-55 U/L Alkaline Phosphatase 56 40-136 U/L Total Protein 7.3 6.4-8.2 GM/DL Albumin 4.7 H 3.2-4.5 GM/DL My Orders Orders - ZHAO ROPER MD Scrotum (Testicle) [id number] (01/31/19 08:09) Cbc With Automated Diff (01/31/19 08:10) Comprehensive Metabolic Panel (01/31/19 08:10) Ua Culture If Indicated (01/31/19 08:10) Fentanyl Injection (Sublimaze Injection (01/31/19 08:10) Ed Iv/Invasive Line Start (01/31/19 08:10) Ns Iv 1000 Ml (Sodium Chloride 0.9%) (01/31/19 08:20) Vital Signs/I&O 01/31/19 07:56 Temp 98.5 Pulse 50 Resp 18 B/P (MAP) 133/88 (103) Pulse Ox 100 O2 Delivery Room Air Capillary Refill : Less Than 3 Seconds Blood Pressure Mean: 103 Progress Note : Progress Note Seen and evaluated. Ultrasound scrotum ordered for rapid assessment. IV, labs, UA, fentanyl 75 g IV ordered. Normal saline 1 L bolus ordered. Monitor patient. 0849: Ultrasound does show no blood flow to the left testicle and verifies torsion. I did discuss the case with Dr. Brand and he'll see the patient in the emergency department. 0854: Dr. Brand evaluating. 0900: Patient will go to the OR. IV antibiotics ordered. Patient agrees to plan. Departure Communication (Admissions) Time/Spoke to Admitting Phy: 08:49 Impression Primary Impression: Left testicular torsion Disposition: ADMITTED INPATIENT Condition: Stable Admissions Decision to Admit Reason: Admit from ER (General) Decision to Admit/Date: Jan 31, 2019 Time/Decision to Admit Time: 08:49 Departure-Patient Inst. Referrals: ELIEL PICKERING MD (PCP/Family) Primary Care Physician ZHAO ROPER MD Jan 31, 2019 08:20
[2019-01-31 08:28] LABS: BASOPHILS % (AUTO) 0 % (0-10); EOSINOPHILS % (AUTO) 0 % (0-10); HEMATOCRIT 47 % (40-54); HEMOGLOBIN 16.6 G/DL (13.3-17.7); LYMPHOCYTES # (AUTO) 0.9 X 10^3 (1.0-4.0); LYMPHOCYTES % (AUTO) 13 % (12-44); MEAN CORPUSCULAR HEMOGLOBIN 31 PG (25-34); MEAN CORPUSCULAR HGB CONC 36 G/DL (32-36); MEAN CORPUSCULAR VOLUME 87 FL (80-99); MEAN PLATELET VOLUME 10.1 FL (7.4-10.4); MONOCYTES # (AUTO) 0.6 X 10^3 (0.0-1.0); MONOCYTES % (AUTO) 8 % (0-12); NEUTROPHILS # (AUTO) 5.8 X 10^3 (1.8-7.8); NEUTROPHILS % (AUTO) 79 % (42-75); PLATELET COUNT 216 10^3/uL (130-400); RED CELL DISTRIBUTION WIDTH 11.6 % (10.0-14.5); WHITE BLOOD COUNT 7.4 10^3/uL (4.3-11.0)
[2019-01-31] MEDS: LACTATED RINGERS 1,000 ML IV PRN ×3 (08:45→11:20)
[2019-01-31 08:48] LABS: ALANINE AMINOTRANSFERASE 16 U/L (0-55); ALBUMIN 4.7 GM/DL (3.2-4.5); ALKALINE PHOSPHATASE 56 U/L (40-136); BILIRUBIN,TOTAL 0.3 MG/DL (0.1-1.0); BUN/CREATININE RATIO 14; CALCIUM 9.6 MG/DL (8.5-10.1); CARBON DIOXIDE 26 MMOL/L (21-32); CHLORIDE 103 MMOL/L (98-107); CREATININE SERUM 1.17 MG/DL (0.60-1.30); GFR ESTIMATED > 60; GLUCOSE 105 MG/DL (70-105); POTASSIUM 4.5 MMOL/L (3.6-5.0); SODIUM 139 MMOL/L (135-145); TOTAL PROTEIN 7.3 GM/DL (6.4-8.2)
[2019-01-31] MEDS ORDERED: SUCCINYLCHOLINE INJ 100 MG/5 ML SYR ONE (09:06)
[2019-01-31] MEDS ORDERED: SEVOFLURANE (ULTANE) 15 ML INHAL SOLN ONE ×2 (09:06→09:44)
[2019-01-31] MEDS ORDERED: WATER (STERILE) FOR INJECTION 10 ML ONE (09:07)
[2019-01-31] MEDS ORDERED: MIDAZOLAM 2 MG/2 ML (VERSED) VIAL ONE ×2 (09:08→09:40)
[2019-01-31] MEDS ORDERED: fentaNYL INJECTION 100 MCG/2 ML AMP ONE ×2 (09:08→12:13)
--- OUTSIDE RECORDS SUMMARY | 2019-01-31 09:10 | XMS REPORT | Continuity of Care Document ---
Author Organization Unknown Address Unknown Allergies There is no data. Medications There is no data. Problems Date Dx Coded Attending Type Code Diagnosis Diagnosed By 03/16/2008 KARMA UMANA APRN 314.01 ATTENTION-DEFICIT HYPERACTIVITY DISORDER 03/16/2008 ENEDINA MIRANDA DO 314.01 ATTENTION-DEFICIT HYPERACTIVITY DISORDER 04/28/2008 KARMA UMANA APRN V58.69 MEDICATION HIGH RISK 04/28/2008 ENEDINA MIRANDA DO V58.69 MEDICATION HIGH RISK 03/08/2010 KARMA UMANA APRN V06.5 DT, TETANUS-DIPHTHERIA [Td] ,TDAP 03/08/2010 ENEDINA MIRANDA DO V06.5 DT, TETANUS-DIPHTHERIA [Td] ,TDAP 03/06/2011 DOGN RASCON KARMA JAMIN 303.00 ACUTE ALCOHOLIC INTOXICATION [...] Status Pt. Type Provider Facility Loc./Unit Complaint [id number] 05/02/2013 08:51:00 05/02/2013 23:59:59 [facility] Outpatient ENEDINA MIRANDA DO [id number] 09/05/2011 10:35:00 09/05/2011 23:59:59 [facility] Outpatient KARMA UMANA APRN [id number] 08/20/2012 20:32:56 [place] [id number] 07/02/2017 08:00:00 07/02/2017 23:59:59 [facility]
--- NOTE | 2019-01-31 09:12 | Diagnostic Imaging Report ---
US SCROTUM (Testicle) [id number] TECHNIQUE: Baugh-scale, color doppler and spectral duplex imaging of the scrotum and its contents was performed. INDICATION: Left-sided testicular pain COMPARISON: None available. FINDINGS: Right: The right testis is normal in size measuring 5.0 x 2.9 x 4.0 cm. It has homogenous echogenicity without mass or microcalcification. Blood flow is present in the right testis by color doppler imaging, and low resistance waveforms are present. The epididymis is normal. No hydrocele or varicole. Left: The left testis measures 4.4 x 3.5 x 3.3 cm. However, no arterial venous blood flow is able to be detected within the left testis. The left testis maintains normal echogenicity without mass. Moderate-sized left-sided hydrocele appears simple. Mild enlargement of the left epididymis has heterogeneous echogenicity. IMPRESSION: 1. No detectable blood flow within the left testis must be considered testicular torsion and urology consultation is recommended. These findings were relayed to Dr. Galicia by the supervisor detasseling crew Violetta Myles at the time the exam was performed in the emergency department. Dictated by: Dictated on workstation # [id number]
[2019-01-31] MEDS ORDERED: ONDANSETRON 4 MG/2 ML (SDV) Z0FRAN ONE (09:13)
[2019-01-31] MEDS ORDERED: LIDOCAINE PF 2% 5 ML (XYLOCAINE) VIAL ONE (09:13)
[2019-01-31] MEDS ORDERED: proPOfol 200 MG/20 ML (DIPRIVAN) VIAL IV ONE (09:13)
[2019-01-31] MEDS ORDERED: ceFAZolin INJECTION 1,000 MG VIAL IV ONE (09:15)
--- NOTE | 2019-01-31 09:20 | Progress Note-Pre Operative ---
Pre-Operative Progress Note H&P Reviewed The H&P was reviewed, patient examined and no changes noted. Date Seen by Provider: Jan 31, 2019 Time Seen by Provider: 09:20 Date H&P Reviewed: Jan 31, 2019 Time H&P Reviewed: 09:19 Pre-Operative Diagnosis: LT TESTICULAR TORSION CYNTHIA AHN MD Jan 31, 2019 09:20
--- NOTE | 2019-01-31 09:21 | Progress Note-Post Operative ---
Post-Operative Progess Note Surgeon (s)/Tip Cutter (s) Surgeon CYNTHIA AHN MD Tip Cutter: NONE Pre-Operative Diagnosis LT TESTICULAR TORSION Post-Operative Diagnosis SAME Procedure & Operative Findings Date of Procedure 01/31/19 Procedure Performed/Findings SCROTAL EXPLORATION AND BILATERAL ORCHIOPEXY Anesthesia Type GENERAL Estimated Blood Loss Estimated blood loss (mL): NEGLIGIBLE Specimens/Packing Specimens Removed NONE Packin/# JORGE DRAINS CYNTHIA AHN MD Jan 31, 2019 09:21
--- NOTE | 2019-01-31 09:48 | CONSULTATION REPORT ---
DATE OF SERVICE: 01/31/2019 ATTENDING PHYSICIAN: Dr. Galicia. SUMMARY: A 23-year-old white man, who woke up early this morning with pain in the left testicle, that continued to build up until it became severe. He presented to the emergency room with severe left testicular pain. A testicular duplex scan was obtained and confirmed diagnosis of testicular torsion. He denies any other complaints. SOCIAL HISTORY: The patient is single. No smoking. No alcohol. No drugs. ALLERGIES: No known drug allergies MEDICATIONS: No medications: MEDICAL ILLNESSES: No medical illnesses. PAST SURGERIES: Had surgery collins a right inguinal hernia repair as 5-years-old. PHYSICAL EXAMINATION: VITAL SIGNS: Per chart. GENERAL: Well-nourished, well developed in no acute distress at the time of my examination. He had received pain medicine. HEENT: Head is normocephalic. ENT is unremarkable. NECK: Supple. No bruits. CHEST: Clear, nontender. HEART: Regular rate and rhythm. No murmurs or gallops. ABDOMEN: Soft, nontender. EXTREMITIES: Lower extremities, no edema or cyanosis. NEUROLOGIC: Grossly intact. Oriented x3. GENITOURINARY: Phallus circumcised, adequate meatus. Right testicle is down. The scrotum is normal. The left testicle, the whole thing is swollen and firm, tender, epididymis and testicular area cannot be differentiated, confirming strongly the diagnosis of testicular torsion. IMPRESSION: Left testicular torsion. PLAN: Immediate scrotal exploration, bilateral orchiopexy with possible left orchiectomy. The procedure was fully explained to the patient and his girlfriend with the risks and complications. They fully understand and want the procedure done. All the questions were answered. We are going to immediately proceed with the operating room. Job ID: [id number] DocumentID: [id number] Dictated Date: 01/31/2019 09:15:14 Top Lift Scourer Date: 01/31/2019 09:48:21 Dictated By: CYNTHIA AHN MD
[2019-01-31] MEDS ORDERED: morphine INJ 10 MG/ML 1ML (SYR OR VIAL) ONE (10:28)
[2019-01-31] MEDS ORDERED: ONDANSETRON 4 MG/2 ML (SDV) Z0FRAN IVP PRN (10:30)
[2019-01-31] MEDS ORDERED: morphine INJ 10 MG/ML 1ML (SYR OR VIAL) IVP ONE (10:30)
[2019-01-31] MEDS ORDERED: MEPERIDINE (DEMEROL) INJ 50 MG/ML IVP ONE (10:30)
[2019-01-31] MEDS ORDERED: PROMETHAZINE INJ 25 MG/ML (PHENERGAN) AMP IVP ONE (10:30)
[2019-01-31] MEDS: KETOROLAC 30 MG/ML VIAL IVP PRN ×2 (10:47→13:35)
[2019-01-31] MEDS ORDERED: fentaNYL INJECTION 100 MCG/2 ML AMP IVP ONE (12:15)
[2019-01-31] MEDS: HYDROcodone/APAP 7.5 MG/325 MG (LORTAB, LORCET PLUS) TABLET PO PRN ×2 (12:49→20:51)
--- NOTE | 2019-01-31 13:05 | NUR ---
Pt taken to room 417 via bed for transfer of care, bedside report to KHURRAM Bernal.
--- NOTE | 2019-01-31 13:20 | Anesthesia-General Post-Op ---
General Patient Condition Mental Status/LOC: Same as Preop Cardiovascular: Satisfactory Nausea/Vomiting: Absent Respiratory: Satisfactory Pain: Controlled Complications: Absent Post Op Complications Complications None Follow Up Care/Instructions Patient Instructions None needed. Anesthesia/Patient Condition Patient Condition Patient is doing well, no complaints, stable vital signs, no apparent adverse anesthesia problems. No complications reported per nursing. D/C home per [facility] [place] Criteria: Yes ARLETTE GARRIDO CRNA Jan 31, 2019 13:20
[2019-01-31] MEDS ORDERED: ACET-93 PO (13:42)
--- NOTE | 2019-01-31 13:44 | NUR ---
SPOKE WITH PATIENT, HE INDICATED THERE WERE NO PRESCRIPTION MEDICATIONS HE TOOK. OTC MEDICATIONS: ACETAMINOPHEN 1000MG PRN
--- NOTE | 2019-01-31 15:11 | OPERATIVE REPORT ---
DATE OF SERVICE: 01/31/2019 PREOPERATIVE DIAGNOSIS: Left testicular torsion. POSTOPERATIVE DIAGNOSIS: Left testicular torsion. OPERATION PERFORMED: Bilateral orchiopexy. SURGEON: Cynthia Ahn MD ANESTHESIA: General. COMPLICATIONS: None. DESCRIPTION OF PROCEDURE: Under satisfactory general anesthesia, the patient was placed in supine position. Abdomen and genitalia and thighs were prepped and draped in the usual sterile fashion. Incision was made in the median raphe, carried through the left scrotal compartment. The testicle was delivered. It has untwisted her itself. Once under anesthesia was only one twist left there was residual bluish color of the testicle and the epididymis, but no black area at all in complete healthy structures. I removed the appendix testicle and epididymis to prevent further future torsion. I pexed the testicle in three spots lateral, lower, and medium, avoiding the epididymis with 2-0 silk suture. Then, I did the same thing on the right side. Hemostasis was complete. Both scrotal compartments were drained with a quarter inch Rama drain brought through a separate stab wound in the bottom of the scrotum and secured in position with 3-0 chromic catgut. Closure was performed in two layers. The dartos with running 3-0 chromic catgut and the skin with interrupted 4-0 Vicryl. Telfa fluff and scrotal support was applied. Needle, sponge and instrument count correct x2. Estimated blood loss negligible. The patient tolerated the procedure and anesthesia well and was sent to recovery room in stable condition. Job ID: [id number] DocumentID: [id number] Dictated Date: 01/31/2019 10:14:11 [employer] Tractor Operator Date: 01/31/2019 15:11:02 Dictated By: CYNTHIA AHN MD
[2019-01-31] MEDS ORDERED: NS IV 1000 ML 1,000 ML IV SCH (15:28)
[2019-01-31] MEDS ORDERED: fentaNYL INJECTION 1,000 MCG in NS (IVPB) 80 ML IV SCH (15:30)
[2019-01-31] MEDS ORDERED: diphenhydrAMINE 50 MG/ML INJ (BENADRYL) IV PRN (15:30)
[2019-01-31] MEDS ORDERED: ONDANSETRON 4 MG/2 ML (SDV) Z0FRAN IV PRN (15:30)
[2019-01-31] MEDS ORDERED: NALOXONE 0.4 MG/ML 1 ML (NARCAN) VIAL IV PRN (15:30)
[2019-01-31] MEDS ORDERED: METOCLOPRAMIDE INJ 10 MG/2 ML (REGLAN) IV PRN (15:30)
[2019-02-01] VITALS: BP 97/56
[2019-02-01] MEDS: HYDROcodone/APAP 7.5 MG/325 MG (LORTAB, LORCET PLUS) TABLET PO PRN (04:38)
[2019-02-01 04:46] VITALS: BP 96/58
[2019-02-01 08:00] VITALS: BP 104/58
[2019-02-01] MEDS ORDERED: SENNA W/DOCUSATE (SENOKOT S) TABLET PO SCH (09:00)
--- NOTE | 2019-02-01 10:16 | Progress Note-Urology ---
Progress Note-Urology Progress Notes/Assess & Plan Progress/Assessment & Plan AFEBRILE, VSS. PAIN MUCH BETTER. MINIMAL BLEEDING MINIMAL SWELLING. TESTES WELL Final Diagnosis LT TESTICULAR TORSION CYNTHIA AHN MD Feb 01, 2019 10:16
--- NOTE | 2019-02-01 10:18 | Discharge Inst-Urology ---
Discharge Inst-Urology Discharge Medications New, Converted, or Re-newed RX: RX on Chart Patient Instructions/Follow Up Plan Please make appointment to been seen in office in 2 weeks. Rest till then DC Drain prior to discharge Scrotal support for 2 weeks Keep bowels soft and moving Showers, no bath Increase oral fluids for 48 hours and then as needed. Diet as tolerated. If questions or concerns contact your physician Or seek help at emergency department. CYNTHIA AHN MD Feb 01, 2019 10:18
--- NOTE | 2019-02-01 12:36 | NUR ---
Wasted 99ml Fentanyl [employer], discarded into [employer] container, Dolores PAULSON witnessed disposal.
== END 2019-02-01 11:00 | disposition home or self-care (01) ==
LOC: EDUNIT# 07:49 → ER 07:50 → SDC 09:06 → 4TH 13:00 → SDC 02-01 11:00
PROVIDERS: ATTEND Urology
DX: N44.00 Torsion of testis, unspecified (principal); F17.220 Nicotine dependence, chewing tobacco, uncomplicated
CPT/HCPCS: 36415; 76870; 80053; 85025; 87081; 94664